=== PATIENT | male | born 1980 | race Caucasian/White ===

== ENCOUNTER 2017-08-23 17:14 | Emergency (ER) | payer OTHER ==
[~2017-08-23] VITALS: Ht 180.3 cm; Wt 86.2 kg
[~2017-08-23 17:14] MED LIST: CALCIUM CITRAT1 EAC9 PO
[2017-08-23] MEDS ORDERED: ANAPROX DS550 MG PO (18:15)
== END 2017-08-23 19:14 | disposition home or self-care (01) ==
LOC: ED 17:14
DX: S83.91XA Sprain of unspecified site of right knee, initial encounter (principal); F17.200 Nicotine dependence, unspecified, uncomplicated; W18.40XA Slipping, tripping and stumbling without falling, unspecified, initial encounter; Y93.89 Activity, other specified; Y92.096 Garden or yard of other non-institutional residence as the place of occurrence of the external cause; Y99.8 Other external cause status

== ENCOUNTER 2021-12-08 13:21 | Emergency (ER) | payer MEDICAID ==
[~2021-12-08] VITALS: Ht 180.3 cm; Wt 84.8 kg
[~2021-12-08 13:21] MED LIST changes: +ANAPROX DS550 MG PO
[2021-12-08] MEDS ORDERED: BUPRENORPHINE-1 EAC1 SL (13:44)
[2021-12-08] MEDS ORDERED: MIRALAX POWDER17 G1 PO (15:02)
[2021-12-08] MEDS ORDERED: TYLENOL325 M1 PO (15:02)
[2021-12-08] MEDS ORDERED: PROCTOSOL-HC28.35 GM T (15:02)
[2021-12-08] MEDS ORDERED: NAPROXEN250 MG PO (15:02)
== END 2021-12-08 15:34 | disposition home or self-care (01) ==
LOC: ED 13:21
DX: K64.5 Perianal venous thrombosis (principal)

== ENCOUNTER 2025-06-21 13:11 | Emergency (ER) | payer OTHER ==
[~2025-06-21] VITALS: Ht 180.3 cm; Wt 81.6 kg
[~2025-06-21 13:11] MED LIST changes: +BUPRENORPHINE-1 EAC1 SL; +MIRALAX POWDER17 G1 PO; +NAPROXEN250 MG PO; +PROCTOSOL-HC28.35 GM T; +TYLENOL325 M1 PO
[2025-06-21] MEDS ORDERED: METHOCARBAMOL 500 MG TAB PO ONE (13:55)
[2025-06-21] MEDS ORDERED: METHOCARBAMOL500 M1 PO (15:59)
[2025-06-21] MEDS ORDERED: PREDNISONE20 M1 PO (15:59)
[2025-06-21] MEDS ORDERED: IBU800 M1 PO (15:59)
== END 2025-06-21 16:09 | disposition home or self-care (01) ==
LOC: ED 13:11
DX: S33.5XXA Sprain of ligaments of lumbar spine, initial encounter (principal); X50.0XXA Overexertion from strenuous movement or load, initial encounter; Y93.89 Activity, other specified; Y92.89 Other specified places as the place of occurrence of the external cause; Y99.8 Other external cause status